=== PATIENT | male | born 1955 | race Caucasian/White ===

== ENCOUNTER 2018-11-10 18:05 | Emergency (ER) | payer OTHER ==
[~2018-11-10] VITALS: Ht 162.6 cm; Wt 75.3 kg
[2018-11-10] MEDS ORDERED: LIPITOR20 MG (18:21)
== END 2018-11-10 22:01 | disposition home or self-care (01) ==
LOC: ER 18:05
DX: S10.83XA Contusion of other specified part of neck, initial encounter (principal); S20.212A Contusion of left front wall of thorax, initial encounter; V49.9XXA Car occupant (driver) (passenger) injured in unspecified traffic accident, initial encounter; Y93.89 Activity, other specified; Y92.488 Other paved roadways as the place of occurrence of the external cause; Y99.8 Other external cause status